=== PATIENT | male | born 1985 | race Two or more races ===

== ENCOUNTER 2017-01-19 15:06 | Emergency (ER) | payer SELFPAY ==
[2017-01-19 15:12] VITALS: BP 123/91; PULSE 106; RESP 16; TEMP 98.2; O2SAT 95
--- NOTE | 2017-01-19 16:15 | EDPHY ---
H & P Stated Complaint: vision seems dark OWENS ?panic attack Time Seen by Provider: 01/19/17 15:59 HPI/ROS: CHIEF COMPLAINT: headache "I'm worried I had a stroke" HISTORY OF PRESENT ILLNESS: 31-year-old male generally healthy, works as a food order delivery runner, states that at 2:30 p.m. today he was driving his truck when he developed sudden onset of left-sided visual loss, left facial and left whole- body paresthesia with no weakness, no discoordination. No headache but he describes a fullness in his left He pulled truck over was able drive to a local [employer] where he drank some fluid and the integrated campaign manager of [employer] drove him to the ER. He is currently asymptomatic. No history of head or neck trauma or manipulation. He notes that he is particularly concerned because his girlfriend who is in her 20s had a recent CVA and he is concerned that he may have similar. REVIEW OF SYSTEMS: A ten point review of systems was performed and is negative with the exception of the items mentioned in the HPI PAST MEDICAL & SURGICAL HISTORY: None SOCIAL HISTORY: No illicit drug use, no cocaine, nonsmoker. Works as a commercial painter PHYSICAL EXAM (Prior to examination, patient consented to physical exam, hands were washed and my usual and customary physical exam procedures followed) 1) GENERAL: Well-developed, well-nourished, alert and oriented. Appears anxious . 2) HEAD: Normocephalic, atraumatic 3) HEENT: Pupils equal, round, reactive to light bilaterally. Sclera anicteric. Nasopharynx, oropharynx, clear, no lesions. Ears bilaterally with normal tympanic membranes. no facial droop 4) NECK: Full range of motion, no meningeal signs. 5) LUNGS: Clear auscultation bilaterally, no wheezes, no rhonchi, no retractions. 6) HEART: Regular rate and rhythm, no murmur, no heave, no gallop. 7) ABDOMEN: No guarding, no rebound, no focal tenderness, negative McBurney's, negative Kumar's, negative Rovsing's, negative peritoneal sign, 8) MUSCULOSKELETAL: Moving all extremities, no focal areas of tenderness, no obvious trauma. No peripheral edema or discoloration. 9) BACK: No CVA tenderness, no midline vertebral tenderness, no fluctuance, no step-off, no obvious trauma, no visual or palpable abnormality. 10) SKIN: No rash, no petechiae. 11) Psychiatric: Patient is oriented X 3, there is no agitation. 12) NEURO: Awake, alert, and oriented to person, place and time. Answers questions appropriately. There were no obvious focal neurologic abnormalities. No cerebellar dysfunction. Cranial nerves 2 through to 12 intact. Normal steady gait. Upper and lower extremities bilaterally with strength 5 / 5, reflexes 2+. DIFFERENTIAL DIAGNOSIS: In no particular order, including but not limited to subarachnoid hemorrhage, migraine headache, tension headache and infectious causes such as meningitis, pharyngitis and sinusitis, malignancy. The patient understands that this diagnosis is provisional and can never be 100% accurate. Usual and customary warnings were given concerning the clinical impression and all the patient's questions were answered. The patient was instructed to return to the emergency department should her symptoms worsen or return, or develop any new symptoms, otherwise to followup as directed in discharge instructions. This is a partial list of diagnoses considered. These considerations are based on history, physical exam, past history and reassessment. - Personal History Current Tetanus/Diphtheria Vaccine: Yes Current Tetanus Diphtheria and Acellular Pertussis (TDAP): Yes - Medical/Surgical History Hx Asthma: No Hx Chronic Respiratory Disease: No Hx Diabetes: No Hx Cardiac Disease: No Hx Renal Disease: No Hx Cirrhosis: No Hx Alcoholism: No Hx HIV/AIDS: No Hx Splenectomy or Spleen Trauma: No Other PMH: Anxiety - Social History Smoking Status: Never smoked Constitutional: Initial Vital Signs Temperature (C) 36.8 C 01/19/17 15:08 Heart Rate 106 H 01/19/17 15:08 Respiratory Rate 16 01/19/17 15:08 Blood Pressure 123/91 H 01/19/17 15:08 O2 Sat (%) 95 01/19/17 15:08 O2 Delivery Mode Room Air Allergies/Adverse Reactions: No Known Allergies Allergy (Unverified 01/19/17 15:11) Medical Decision Making - Diagnostics Imaging Results: Imaging Impressions Head CT 01/19/17 16:35 Impression: Normal noncontrast CT of the brain. Results called to. Ranulfo Lindo PA-C at 6:40 PM at the time of the interpretation. Brain MRI 01/19/17 16:40 Impression: Normal MRI examination of the brain.. Results called to Ranulfo Lindo PA-C, at 6:40 PM. ED Course/Re-evaluation: 4:30 p.m.: Discussed case with secondary to superimposition Dr. Dorsey. Will obtain CT imaging and MRI. 7:10 p.m.: Re-evaluation. Discussed the patient is normal CT, normal MRI. Doubt subarachnoid hemorrhage as he has a negative CT scan performed within 6 hours of patient's onset of symptoms. he is asymptomatic at this time. He remains with a nonfocal neurologic exam. - Data Points Laboratory Results: 01/19/17 16:14 POC Hgb 17.0 gm/dL gm/dL (13.7-17.5) POC Hct 50 % % (40-51) POC Sodium 142 mEq/L mEq/L (134-144) POC Potassium 3.6 mEq/L mEq/L (3.3-5.0) POC Chloride 98 mEq/L mEq/L (97-110) POC BUN 13 mg/dL mg/dL (7-23) POC Creatinine 0.8 mg/dL mg/dL (0.7-1.3) POC Glucose 90 mg/dL mg/dL (70-100) Point of Care Test Results: 01/19/17 16:14 POC Sodium 142 POC Potassium 3.6 POC Chloride 98 POC BUN 13 POC Creatinine 0.8 POC Glucose 90 Departure - Departure Disposition: Home, Routine, Self-Care Clinical Impression: Headache Qualifiers: Headache type: unspecified Headache chronicity pattern: acute headache Intractability: not intractable Qualified Code(s): R51 - Headache Condition: Good Instructions: Acute Headache (ED) Additional Instructions: THANK YOU FOR YOUR VISIT TO OUR EMERGENCY DEPARTMENT (ED). YOU WERE SEEN TODAY BECAUSE OF A HEADACHE. YOU MAY HAVE HAD LAB TESTS, A CT SCAN, MRI OR EVEN A LUMBAR PUNCTURE (COMMONLY REFERRED TO A SPINAL TAP). WE CANNOT ALWAYS FIND THE EXACT CAUSE OF YOUR SYMPTOMS DURING YOUR VISIT TO THE ED. PLEASE FOLLOW UP WITH YOUR DOCTOR WITHIN 24 HOURS TO BE RECHECKED. RETURN TO THE ED IMMEDIATELY IF YOUR HEADACHE WORSENS, IF YOU DEVELOP A FEVER, NECK PAIN OR NECK STIFFNESS, OR IF YOU BECOME CONFUSED OR ABNORMALLY DROWSY. Referrals: Arsen Richards MD [[facility] [place] Primary Care Provider] - 1-2 days without fail (Dr. Arsen Richards is a neurologist) NIH Stroke Scale Date of Exam: 01/19/17 Time of Exam: 16:12 Level of Consciousness: Alert LOC Questions: Answers Both LOC Commands: Performs Both Correctly Best Gaze: Normal Visual: No Visual Loss Facial Palsy: Normal Motor Arm-Left: No Drift Motor Arm-Right: No Drift Motor Leg-Left: No Drift Motor Leg-Right: No Drift Limb Ataxis: Absent Sensory: Normal Best Language: No Aphasia Dysarthria: Normal Extinction and Inattention (Neglect): No Abnormality NIH Scale Score: 0
[2017-01-19] MEDS ORDERED: GADOBUTROL 10 ML VIAL IVP ONE (18:06)
== END 2017-01-19 19:26 | disposition home or self-care (01) ==
DX: R51 Headache (principal)
CPT/HCPCS: 82947-QW; A9585